=== PATIENT | female | born 1950 | race Caucasian/White ===

== ENCOUNTER 2022-08-17 07:02 | Observation (INO) | payer OTHER ==
[2022-08-11 14:42] LABS: BASOPHILS % (AUTO) 0.6 % (0.0-5.0); HEMATOCRIT 44.6 % (36-48); LYMPHOCYTES % (AUTO) 28.7 % (21.0-51.0); MEAN CORPUSCULAR HEMOGLOBIN 30.8 pg (27.0-33.0); MEAN CORPUSCULAR HGB CONC 33.4 g/dL (32.0-36.0); MEAN CORPUSCULAR VOLUME 92.1 fL (79-99); MONOCYTES % (AUTO) 9.4 % (3.0-13.0); NEUTROPHILS % (AUTO) 60.2 % (40.0-77.0); PLATELET COUNT (AUTO) 220 K/uL (130-400); RED BLOOD CELL COUNT(AUTO) 4.84 MIL/uL (4.00-5.50); RED CELL DISTRIBUTION WIDTH 12.4 % (11.0-15.5); WHITE BLOOD COUNT (AUTO) 7.2 K/uL (4.8-10.8)
[2022-08-11 14:52] LABS: CREATININE 1.2 mg/dL (0.5-1.5)
[2022-08-11 14:54] LABS: INR 0.95 (0.85-1.15); PROTHROMBIN TIME 10.4 SEC (9.6-11.6)
[2022-08-11 14:55] LABS: PARTIAL THROMBOPLASTIN TIME 25.8 SEC (26.3-35.5)
[2022-08-16 10:19] VITALS: BP 215/78
[~2022-08-17] VITALS: Ht 172.7 cm; Wt 99.7 kg
[2022-08-17] VITALS (31 sets, daily range): BP systolic 118–178; BP diastolic 53–81
[~2022-08-17 07:02] MED LIST: AEC81 PO; INSU3INS5 SQ; LACTATED RINGERS 1000ML 1,000 ML IV SCH; LOVA10TA2 PO
[2022-08-17] MEDS ORDERED: 0.9%NACL 1000ML 1,000 ML IV ONE (07:37)
[2022-08-17] MEDS ORDERED: ROPIVICAINE 250MG+KETOROLAC 15MG+EPINEPHRINE 0.3+CLONIDINE 80 IV PRN ×5 (08:00)
[2022-08-17] MEDS ORDERED: TRANEXAMIC ACID 1000MG/10ML ONE (08:16)
[2022-08-17] MEDS: CEFAZOLIN SODIUM 1 GM VIAL IVPB SCH ×2 (08:50→11:01)
[2022-08-17] MEDS ORDERED: LIDOCAINE PF 100MG/5ML (2%) SYRINGE 5ML ONE ×2 (10:43→10:46)
[2022-08-17] MEDS ORDERED: SUCCINYLCHOLINE 200MG/10ML SYR ONE ×2 (10:43→10:46)
[2022-08-17] MEDS ORDERED: ONDANSETRON 4MG INJ ONE (10:43)
[2022-08-17] MEDS ORDERED: GLYCOPYRROLATE 1 MG/5 ML SYRINGE ONE (10:44)
[2022-08-17] MEDS ORDERED: MIDAZOLAM HCL 1 MG/ML 2ML VIAL ONE (10:44)
[2022-08-17] MEDS ORDERED: FENTANYL CITRATE PF 50 MCG/1 ML 2ML VIAL ONE ×3 (10:44→14:04)
[2022-08-17] MEDS ORDERED: NEOSTIGMINE 5MG/5ML SYR IV ONE (10:44)
[2022-08-17] MEDS ORDERED: PROPOFOL 10 MG/ML 20ML VIAL IV ONE (10:44)
[2022-08-17] MEDS ORDERED: ROCURONIUM 10MG/1ML SYR 10 MG/ML ML ONE (10:44)
[2022-08-17] MEDS ORDERED: HYDROCODONE/ACETAMINOPHEN 5/325 MG TAB PO PRN (11:00)
[2022-08-17] MEDS ORDERED: MORPHINE 4 MG SYG IVP PRN (11:00)
[2022-08-17] MEDS ORDERED: KCL 20 MEQ ERTAB PO PRN (11:00)
[2022-08-17] MEDS ORDERED: POTASSIUM CHLORIDE 20MEQ/100ML 100 ML IV PRN (11:00)
[2022-08-17] MEDS ORDERED: POTASSIUM CHLORIDE 10% ELIXIR 20 MEQ/15 ML UDCUP PO PRN (11:00)
[2022-08-17] MEDS ORDERED: LIDOCAINE HCL-MPF 1% 2ML VIAL IV PRN (11:00)
[2022-08-17] MEDS: INSULIN HUMULIN R 100 UNIT/ML 3ML SQ SCH ×3 (11:30→20:31)
[2022-08-17] MEDS ORDERED: PHENYLEPHRINE HCL 10 MG/ML 1ML VIAL IV ONE (11:34)
[2022-08-17] MEDS: TRAMADOL HCL 50 MG TABLET PO SCH ×2 (12:00→16:53)
[2022-08-17] MEDS ORDERED: IBUPROFEN 800MG + NS 250ML IV SCH (14:00)
[2022-08-17] MEDS: ONDANSETRON 4MG INJ IVP PRN (14:11)
[2022-08-17] MEDS: ACETAMINOPHEN 1,000 MG/100 ML VIAL IV SCH ×3 (14:41→22:17)
[2022-08-17] MEDS: CALDOLOR 800MG+NS 250ML 250 ML IV SCH ×2 (15:09→19:42)
[2022-08-17] MEDS ORDERED: LABETALOL 20MG SYG IV ONE (15:21)
[2022-08-17] MEDS: CEFAZOLIN SODIUM 1 GM VIAL IVP SCH (16:53)
[2022-08-17] MEDS: 0.9%NACL 1000ML 1,000 ML IV SCH (19:41)
[2022-08-17] MEDS: FAMOTIDINE 20MG TAB PO SCH (19:42)
[2022-08-17] MEDS: ASPIRIN 81 MG EC TAB PO SCH (19:42)
[2022-08-17] MEDS: SIMVASTATIN 10 MG TABLET PO SCH (19:42)
[2022-08-17] MEDS: INSULIN HUMULIN 70/30 100 UNIT/ML 3ML SQ SCH (20:32)
[2022-08-18] MEDS: TRAMADOL HCL 50 MG TABLET PO SCH ×4 (01:02→16:59)
[2022-08-18] MEDS: CEFAZOLIN SODIUM 1 GM VIAL IVP SCH (01:02)
[2022-08-18 04:43] VITALS: BP 140/78
[2022-08-18] MEDS: CALDOLOR 800MG+NS 250ML 250 ML IV SCH (05:07)
[2022-08-18 05:31] LABS: HEMATOCRIT 37.6 % (36-48); MEAN CORPUSCULAR HEMOGLOBIN 31.1 pg (27.0-33.0); MEAN CORPUSCULAR HGB CONC 32.4 g/dL (32.0-36.0); MEAN CORPUSCULAR VOLUME 95.9 fL (79-99); RED BLOOD CELL COUNT(AUTO) 3.92 MIL/uL (4.00-5.50); RED CELL DISTRIBUTION WIDTH 12.6 % (11.0-15.5); WHITE BLOOD COUNT (AUTO) 8.6 K/uL (4.8-10.8)
[2022-08-18 06:14] LABS: CREATININE 1.2 mg/dL (0.5-1.5); POTASSIUM 4.3 mmol/L (3.5-5.1)
[2022-08-18] MEDS: INSULIN HUMULIN R 100 UNIT/ML 3ML SQ SCH ×4 (06:23→20:43)
[2022-08-18] MEDS: 0.9%NACL 1000ML 1,000 ML IV SCH (07:00)
[2022-08-18 08:13] VITALS: BP 135/57
[2022-08-18] MEDS: ASPIRIN 81 MG EC TAB PO SCH ×2 (08:18→20:13)
[2022-08-18] MEDS: FAMOTIDINE 20MG TAB PO SCH ×2 (08:19→20:13)
[2022-08-18] MEDS: POLYETHYLENE GLYCOL 3350 17 GM POWD.PACK PO SCH (08:20)
[2022-08-18] MEDS: HYDROCODONE/ACETAMINOPHEN 10/325 MG TAB PO PRN ×3 (08:20→18:54)
[2022-08-18] MEDS: INSULIN HUMULIN 70/30 100 UNIT/ML 3ML SQ SCH ×2 (08:21→20:35)
[2022-08-18 11:41] VITALS: BP 144/71
[2022-08-18] MEDS: ONDANSETRON 4MG INJ IVP PRN (12:10)
[2022-08-18 16:00] VITALS: BP 167/78
[2022-08-18 20:00] VITALS: BP 154/77
[2022-08-18] MEDS: SIMVASTATIN 10 MG TABLET PO SCH (20:13)
[2022-08-19] VITALS: BP 134/66
[2022-08-19] MEDS: TRAMADOL HCL 50 MG TABLET PO SCH ×3 (00:55→12:25)
[2022-08-19 04:00] VITALS: BP 144/60
[2022-08-19] MEDS: INSULIN HUMULIN R 100 UNIT/ML 3ML SQ SCH ×3 (06:23→16:30)
[2022-08-19 07:50] VITALS: BP 119/58
[2022-08-19] MEDS: HYDROCODONE/ACETAMINOPHEN 10/325 MG TAB PO PRN (08:43)
[2022-08-19] MEDS: INSULIN HUMULIN 70/30 100 UNIT/ML 3ML SQ SCH (08:44)
[2022-08-19] MEDS: POLYETHYLENE GLYCOL 3350 17 GM POWD.PACK PO SCH (08:46)
[2022-08-19] MEDS: ASPIRIN 81 MG EC TAB PO SCH (08:46)
[2022-08-19] MEDS: FAMOTIDINE 20MG TAB PO SCH (08:46)
[2022-08-19] MEDS: ONDANSETRON 4MG INJ IVP PRN (08:49)
[2022-08-19 11:49] VITALS: BP 159/73
[2022-08-19 16:36] VITALS: BP 129/72
[2022-08-20] MEDS ORDERED: BISACODYL 10 MG SUPP.RECT RC PRN (11:00)
== END 2022-08-19 17:30 | disposition home or self-care (01) ==
LOC: DAH 07:02 → DAHIP 07:03 → DAH 07:03 → 4BH 18:56
PROVIDERS: ADMIT Orthopaedic Surgery; ATTEND Orthopaedic Surgery
DX: M17.12 Unilateral primary osteoarthritis, left knee (principal); Z20.822 Contact with and (suspected) exposure to COVID-19; E11.9 Type 2 diabetes mellitus without complications; Z79.899 Other long term (current) drug therapy; Z79.4 Long term (current) use of insulin; Z79.82 Long term (current) use of aspirin; Z98.890 Other specified postprocedural states
CPT/HCPCS: 80048 ×2; 85025; 85610; 85730; 87426; 36415 ×2; 87641; 27447; 96365; 96366 ×2; 96367; 82948 ×11; 73562; 97039 ×3; 96375; 85027; 97161; 97116 ×3; 97530 ×3; 96376; A6260; J1815 ×9; C1776 ×4; G0378 ×45; A4663; J7030 ×2; A4649 ×4; J3010 ×3; J0690 ×3; J3490 ×2; J0330 ×2; J2710; J2001 ×2; J2250; J2704; J2405 ×4; J2370; G0168; A6255; A6254; A5120; A4215; A4223; A4222; A4221; J1741

== ENCOUNTER → 2022-12-07 | Outpatient (CLI) | payer OTHER ==
[~2022-12-07] MED LIST changes: -LACTATED RINGERS 1000ML 1,000 ML IV SCH
== END | disposition home or self-care (01) ==
LOC: RAH 14:43
PROVIDERS: ATTEND Orthopaedic Surgery
DX: M17.11 Unilateral primary osteoarthritis, right knee (principal)
CPT/HCPCS: 73700

== ENCOUNTER 2023-01-04 06:06 | Observation (INO) | payer OTHER ==
[2022-12-29 11:39] LABS: BASOPHILS % (AUTO) 0.5 % (0.0-5.0); EOSINOPHILS % (AUTO) 1.2 % (0.0-8.0); HEMATOCRIT 44.9 % (36-48); LYMPHOCYTES % (AUTO) 31.4 % (21.0-51.0); MEAN CORPUSCULAR HEMOGLOBIN 29.9 pg (27.0-33.0); MEAN CORPUSCULAR HGB CONC 32.5 g/dL (32.0-36.0); MEAN CORPUSCULAR VOLUME 91.8 fL (79-99); MONOCYTES % (AUTO) 9.9 % (3.0-13.0); NEUTROPHILS % (AUTO) 56.8 % (40.0-77.0); PLATELET COUNT (AUTO) 244 K/uL (130-400); RED BLOOD CELL COUNT(AUTO) 4.89 MIL/uL (4.00-5.50); RED CELL DISTRIBUTION WIDTH 13.3 % (11.0-15.5); WHITE BLOOD COUNT (AUTO) 6.6 K/uL (4.8-10.8)
[2022-12-29 11:43] VITALS: BP 156/74
[2022-12-29 12:01] LABS: CREATININE 1.1 mg/dL (0.5-1.5); POTASSIUM 4.8 mmol/L (3.5-5.1)
[2022-12-29 12:02] LABS: INR 0.96 (0.85-1.15); PROTHROMBIN TIME 10.5 SEC (9.6-11.6)
[2022-12-29 12:03] LABS: PARTIAL THROMBOPLASTIN TIME 26.3 SEC (26.3-35.5)
[2023-01-04] VITALS (32 sets, daily range): BP systolic 114–172; BP diastolic 46–99
[~2023-01-04] VITALS: Ht 172.7 cm; Wt 97.2 kg
[2023-01-04] MEDS ORDERED: 0.9%NACL 1000ML 1,000 ML IV ONE (07:49)
[2023-01-04] MEDS ORDERED: CEFAZOLIN SODIUM 2 GM VIAL ONE (07:49)
[2023-01-04] MEDS ORDERED: SUCCINYLCHOLINE 200MG/10ML SYR ONE (11:01)
[2023-01-04] MEDS ORDERED: ONDANSETRON 4MG INJ ONE (11:01)
[2023-01-04] MEDS ORDERED: DEXAMETHASONE SOD PHOSPHATE 10MG/ML 1ML VIAL ONE (11:01)
[2023-01-04] MEDS ORDERED: LIDOCAINE PF 100MG/5ML (2%) SYRINGE 5ML ONE (11:01)
[2023-01-04] MEDS ORDERED: GLYCOPYRROLATE 1 MG/5 ML SYRINGE ONE (11:01)
[2023-01-04] MEDS ORDERED: PROPOFOL 10 MG/ML 20ML VIAL IV ONE (11:02)
[2023-01-04] MEDS ORDERED: NEOSTIGMINE 5MG/5ML SYR IV ONE (11:02)
[2023-01-04] MEDS ORDERED: MIDAZOLAM HCL 1 MG/ML 2ML VIAL ONE (11:02)
[2023-01-04] MEDS ORDERED: FENTANYL CITRATE PF 50 MCG/1 ML 2ML VIAL ONE (11:02)
[2023-01-04] MEDS ORDERED: ROCURONIUM 10MG/1ML SYR 10 MG/ML ML ONE (11:02)
[2023-01-04] MEDS ORDERED: ROPIVACAINE 0.5% 5MG/ML 30ML IJ ONE (11:06)
[2023-01-04] MEDS ORDERED: TRANEXAMIC ACID 1000MG/10ML ONE (11:39)
[2023-01-04] MEDS ORDERED: CEFAZOLIN SODIUM 2 GM VIAL IVPB ONE (11:40)
[2023-01-04] MEDS ORDERED: TRANEXAMIC ACID 1000MG/10ML IV ONE (11:45)
[2023-01-04] MEDS ORDERED: KETOROLAC 30MG VIAL (30MG/ML) ONE (13:04)
[2023-01-04] MEDS ORDERED: MEPERIDINE-PF 25 MG/ML SYG ONE (13:12)
[2023-01-04] MEDS ORDERED: ONDANSETRON 4MG INJ IVP PRN (13:30)
[2023-01-04] MEDS ORDERED: POTASSIUM CHLORIDE 20MEQ/100ML 100 ML IV PRN (13:30)
[2023-01-04] MEDS ORDERED: KCL 20 MEQ ERTAB PO PRN (13:30)
[2023-01-04] MEDS ORDERED: 0.9%NACL 1000ML 1,000 ML IV SCH (13:30)
[2023-01-04] MEDS ORDERED: HYDROCODONE/ACETAMINOPHEN 5/325 MG TAB PO PRN (13:30)
[2023-01-04] MEDS ORDERED: POTASSIUM CHLORIDE 10% ELIXIR 20 MEQ/15 ML UDCUP PO PRN (13:30)
[2023-01-04] MEDS: ACETAMINOPHEN 1,000 MG/100 ML VIAL IV SCH ×2 (13:58→20:59)
[2023-01-04] MEDS ORDERED: HYDRALAZINE 20MG/ML VIAL ONE (14:06)
[2023-01-04] MEDS: INSULIN HUMULIN R 100 UNIT/ML 3ML SQ SCH ×2 (16:30→21:18)
[2023-01-04] MEDS: IBUPROFEN 800MG + NS 250ML IV SCH (17:41)
[2023-01-04] MEDS: TRAMADOL HCL 50 MG TABLET PO SCH (17:42)
[2023-01-04] MEDS: CEFAZOLIN SODIUM 1 GM VIAL IVPB SCH (17:46)
[2023-01-04] MEDS: FAMOTIDINE 20MG TAB PO SCH (20:59)
[2023-01-04] MEDS: ASPIRIN 81 MG EC TAB PO SCH (20:59)
[2023-01-04] MEDS: INSULN ASP PRT SQ SCH (21:00)
[2023-01-04] MEDS: LOVASTATIN 10 MG PO SCH (21:00)
[2023-01-04] MEDS: INSULIN ASPART SQ SCH (21:00)
[2023-01-05] MEDS: IBUPROFEN 800MG + NS 250ML IV SCH ×2 (00:19→09:01)
[2023-01-05] MEDS: TRAMADOL HCL 50 MG TABLET PO SCH ×5 (00:20→23:23)
[2023-01-05] MEDS: ACETAMINOPHEN 1,000 MG/100 ML VIAL IV SCH (02:26)
[2023-01-05] MEDS: CEFAZOLIN SODIUM 1 GM VIAL IVPB SCH (02:33)
[2023-01-05 03:22] VITALS: BP 130/67
[2023-01-05 05:11] LABS: HEMATOCRIT 35.8 % (36-48); MEAN CORPUSCULAR HEMOGLOBIN 29.9 pg (27.0-33.0); MEAN CORPUSCULAR VOLUME 90.6 fL (79-99); RED BLOOD CELL COUNT(AUTO) 3.95 MIL/uL (4.00-5.50); RED CELL DISTRIBUTION WIDTH 13.2 % (11.0-15.5); WHITE BLOOD COUNT (AUTO) 10.6 K/uL (4.8-10.8)
[2023-01-05 05:28] LABS: CREATININE 1.2 mg/dL (0.5-1.5); POTASSIUM 4.5 mmol/L (3.5-5.1)
[2023-01-05] MEDS: INSULIN HUMULIN R 100 UNIT/ML 3ML SQ SCH ×4 (06:10→20:55)
[2023-01-05 08:00] VITALS: BP 126/61
[2023-01-05] MEDS: POLYETHYLENE GLYCOL 3350 17 GM POWD.PACK PO SCH (09:00)
[2023-01-05] MEDS: INSULIN ASPART SQ SCH ×2 (09:00→20:55)
[2023-01-05] MEDS: INSULIN ASPART PROTAMINE SQ SCH (09:00)
[2023-01-05] MEDS: ASPIRIN 81 MG EC TAB PO SCH ×2 (09:01→19:46)
[2023-01-05] MEDS: FAMOTIDINE 20MG TAB PO SCH ×2 (09:01→19:45)
[2023-01-05 12:00] VITALS: BP 112/40
[2023-01-05 16:00] VITALS: BP 143/66
[2023-01-05 19:00] VITALS: BP 154/63
[2023-01-05] MEDS: HYDROCODONE/ACETAMINOPHEN 10/325 MG TAB PO PRN (19:45)
[2023-01-05] MEDS: LOVASTATIN 10 MG PO SCH (19:46)
[2023-01-05] MEDS: INSULN ASP PRT SQ SCH (20:55)
[2023-01-05] MEDS: MORPHINE 4 MG SYG IVP PRN (20:59)
[2023-01-05 23:30] VITALS: BP 157/66
[2023-01-06 04:00] VITALS: BP 162/75
[2023-01-06] MEDS: TRAMADOL HCL 50 MG TABLET PO SCH ×3 (05:49→17:37)
[2023-01-06] MEDS: INSULIN HUMULIN R 100 UNIT/ML 3ML SQ SCH ×4 (06:28→20:26)
[2023-01-06 07:52] VITALS: BP 154/62
[2023-01-06] MEDS: POLYETHYLENE GLYCOL 3350 17 GM POWD.PACK PO SCH (08:47)
[2023-01-06] MEDS: INSULIN ASPART SQ SCH ×2 (08:47→20:27)
[2023-01-06] MEDS: INSULIN ASPART PROTAMINE SQ SCH (08:47)
[2023-01-06] MEDS: FAMOTIDINE 20MG TAB PO SCH ×2 (08:47→20:24)
[2023-01-06] MEDS: ASPIRIN 81 MG EC TAB PO SCH ×2 (08:47→20:24)
[2023-01-06] MEDS: HYDROCODONE/ACETAMINOPHEN 10/325 MG TAB PO PRN ×2 (08:47→17:00)
[2023-01-06] MEDS: MORPHINE 4 MG SYG IVP PRN (10:19)
[2023-01-06 12:00] VITALS: BP 138/73
[2023-01-06 16:00] VITALS: BP 173/75
[2023-01-06 20:03] VITALS: BP 141/58
[2023-01-06] MEDS: LOVASTATIN 10 MG PO SCH (20:25)
[2023-01-06] MEDS: INSULN ASP PRT SQ SCH (20:27)
[2023-01-06 23:20] VITALS: BP 128/55
[2023-01-07] MEDS: TRAMADOL HCL 50 MG TABLET PO SCH ×3 (00:15→12:42)
[2023-01-07 04:31] VITALS: BP 152/71
[2023-01-07] MEDS: INSULIN HUMULIN R 100 UNIT/ML 3ML SQ SCH ×3 (06:14→16:30)
[2023-01-07 08:16] VITALS: BP 137/60
[2023-01-07] MEDS: FAMOTIDINE 20MG TAB PO SCH (08:33)
[2023-01-07] MEDS: POLYETHYLENE GLYCOL 3350 17 GM POWD.PACK PO SCH (08:33)
[2023-01-07] MEDS: ASPIRIN 81 MG EC TAB PO SCH (08:33)
[2023-01-07] MEDS: HYDROCODONE/ACETAMINOPHEN 10/325 MG TAB PO PRN (08:34)
[2023-01-07] MEDS: INSULIN ASPART SQ SCH (08:43)
[2023-01-07] MEDS: INSULIN ASPART PROTAMINE SQ SCH (08:43)
[2023-01-07 11:44] VITALS: BP 119/74
[2023-01-07] MEDS ORDERED: BISACODYL 10 MG SUPP.RECT RC PRN (13:30)
== END 2023-01-07 18:45 ==
LOC: DAH 06:06 → DAHIP 06:07 → 4AH 16:15
PROVIDERS: ADMIT Orthopaedic Surgery; ATTEND Orthopaedic Surgery
DX: M17.12 Unilateral primary osteoarthritis, left knee (principal); Z20.822 Contact with and (suspected) exposure to COVID-19; M65.9 Synovitis and tenosynovitis, unspecified; E11.9 Type 2 diabetes mellitus without complications; E78.00 Pure hypercholesterolemia, unspecified; Z79.4 Long term (current) use of insulin; Z79.899 Other long term (current) drug therapy; Z98.890 Other specified postprocedural states
CPT/HCPCS: 80048 ×2; 85025; 85610; 85730; 87426; 36415 ×2; 93005; 87641; 27447; 96365; 96367 ×2; 96368; 64447; 82948 ×13; 97039 ×6; 96376 ×2; 96366; 96375 ×2; 85027; 97161; 97116 ×5; 97530 ×5; A6260; J1815 ×2; G0378 ×72; A4663; J7030 ×2; J3010; J0690 ×4; J3490 ×3; J0330; J1100; J2710; J2001; J0360; J2250; J2704; J2405 ×2; J1885; J2175; J2795; J1741 ×3; A6223; G0168; A4649 ×3; C1776 ×4; A5120 ×2; A4215; A4223; A4222; A4221; J2270 ×2